=== PATIENT | male | born 1945 | race Caucasian/White ===

== ENCOUNTER 2019-06-05 14:03 | Emergency (ER) | payer MEDICARE ==
[~2019-06-05] VITALS: Ht 172.7 cm; Wt 81.8 kg
[2019-06-05] MEDS ORDERED: SIMV40TA20 PO (14:33)
[2019-06-05] MEDS ORDERED: ATEN50TA2 PO (14:33)
[2019-06-05] MEDS ORDERED: XALA0.007 OU (14:33)
[2019-06-05] MEDS ORDERED: CLOP75TA2 PO (14:33)
[2019-06-05] MEDS ORDERED: FLOM0.4C39 PO (14:33)
[2019-06-05] MEDS ORDERED: FINA5TAB2 PO (14:33)
[2019-06-05] MEDS ORDERED: ENAL20TA PO (14:33)
[2019-06-05 15:32] LABS: INR 1.05; PARTIAL THROMBOPLASTIN TIME 27.8 SECONDS (25.0-38.4); PROTHROMBIN TIME 13.4 SECONDS (11.8-14.0)
[2019-06-05 15:33] LABS: BASO % 0.4 % (0.0-1.0); EOS # 0.1 10^3/uL (0.0-0.5); EOS % 1.3 % (0.0-3.0); HEMATOCRIT 41.5 % (42.0-52.0); HEMOGLOBIN 14.5 g/dl (13.5-17.5); LYMPH # 0.9 10^3/uL (1.5-5.0); LYMPH % 17.9 % (24.0-44.0); MEAN CORPUSCULAR HEMOGLOBIN 30.7 pg (27.0-33.0); MEAN CORPUSCULAR HGB CONC 34.9 g/dl (32.0-36.5); MEAN CORPUSCULAR VOLUME 87.7 fl (80.0-96.0); MONO # 0.5 10^3/uL (0.0-0.8); MONO % 9.2 % (0.0-5.0); NEUTROPHILS # 3.7 10^3/uL (1.5-8.5); PLATELET COUNT, AUTOMATED 170 10^3/uL (150-450); RED BLOOD COUNT 4.73 10^6/uL (4.30-6.10); WHITE BLOOD COUNT 5.2 10^3/uL (4.0-10.0)
--- NOTE | 2019-06-05 15:50 | REP ---
Right upper extremity duplex Doppler venous ultrasound. Real time compression and duplex Doppler evaluation of the right upper extremity deep venous system is performed. The right subclavian, jugular, axillary, brachial, basilic and cephalic veins are fully compressible where accessible with transducer pressure, and demonstrate no intraluminal thrombus and normal venous waveforms. There is no evidence of deep venous thrombosis. Impression: No evidence of deep venous thrombosis of the right upper extremity deep vein system. Electronically Signed by Gage Serrato MD 06/05/2019 03:41 P
--- NOTE | 2019-06-05 15:54 | REP ---
Chest x-ray: Two views. History: Chest pain. No comparison study. Findings: The lungs are hyperinflated consistent with some degree of COPD. No infiltrate is seen. Pleural angles are sharp. There is a granulomatous calcification in the right base. The aorta is slightly tortuous and calcific. Heart size is normal. The pleural angles are sharp. Impression: Hyperinflation. No acute disease. Electronically Signed by Jaydon Carreon MD 06/05/2019 03:45 P
[2019-06-05 16:00] LABS: ALBUMIN 3.6 GM/DL (3.2-5.2); ALT/SGPT 21 U/L (12-78); BILIRUBIN,DIRECT 0.4 MG/DL (0.0-0.2); BILIRUBIN,TOTAL 1.4 MG/DL (0.2-1.0); BLOOD UREA NITROGEN 19 MG/DL (7-18); CALCIUM LEVEL 8.3 MG/DL (8.8-10.2); CARBON DIOXIDE LEVEL 26 MEQ/L (21-32); CHLORIDE LEVEL 102 MEQ/L (98-107); CK-MB VALUE MASS 2.1 NG/ML (<3.6); CPK CREATINE PHOSPHOKINASE 84 U/L (39-308); FREE T4 1.25 NG/DL (0.76-1.46); GLOMERULAR FILTRATION RATE > 60.0 (>42); GLUCOSE, FASTING 119 MG/DL (70-100); MAGNESIUM LEVEL 2.2 MG/DL (1.8-2.4); PHOSPHORUS LEVEL 3.3 MG/DL (2.5-4.9); POTASSIUM SERUM 4.1 MEQ/L (3.5-5.1); SODIUM LEVEL 134 MEQ/L (136-145); TOTAL PROTEIN 6.6 GM/DL (6.4-8.2); TROPONIN I 0.02 NG/ML (< 0.10)
[2019-06-05 16:42] VITALS: BP 172/82
--- NOTE | 2019-06-05 18:45 | ECGEPIP ---
[facility] - ED Test Date: 2019-06-05 Pat Name: BETSY FINNEY Department: Room: - Gender: Male Coron[facility] Care Unit Nurse: : [id number] Requested By: ANNE Thompson Order Number: [id number] Reading MD: Sadia Perry Measurements Intervals [place] Rate: 69 P: 61 [place]: 209 QRS: 50 QRSD: 89 T: 19 QT: 403 QTc: 434 Interpretive Statements SINUS RHYTHM MINIMAL VOLTAGE CRITERIA FOR LVH, CONSIDER NORMAL VARIANT NONSPECIFIC T-WAVE ABNORMALITY, CLINICAL CORRELATION Electronically Signed on 06-05-2019 18:45:25 EDT by Sadia Perry
== END 2019-06-05 17:40 | disposition home or self-care (01) ==
LOC: EDBD 14:03 → M ED 14:03
DX: M79.601 Pain in right arm (principal); R91.8 Other nonspecific abnormal finding of lung field; I10 Essential (primary) hypertension; E78.5 Hyperlipidemia, unspecified; Z79.899 Other long term (current) drug therapy